=== PATIENT | female | born 1980 | race Caucasian/White ===

== ENCOUNTER 2021-12-03 14:13 | Emergency (ER) | payer OTHER, SELFPAY ==
[2021-12-03 14:14] VITALS: BP 116/74; PULSE 85; RESP 18; TEMP 36.6; O2SAT 99; BMI 28.3
[2021-12-03 17:18] LABS: Absolute Lymphocyte Count 1.75 X10^3/uL (0.83-4.51); Absolute Neutrophil Count 4.5 X10^3/uL (2.0-7.7); Basophil# 0.03 X10^3/uL; Basophil% 0.4 % (0-1); Eosinophils% 1.5 % (0-5); Hematocrit 40.9 % (37-47); Hemoglobin 14.7 g/dL (12.0-15.0); Lymphocyte # 1.75 X10^3/ul (0.83-4.51); Lymphocyte % 25.9 % (19-41); Mean Corp Hgb Conc 35.9 g/dL (32-36); Mean Corpuscular Hgb 32.4 pg (27.0-32.0); Mean Corpuscular Volume 90.1 fL (81-99); Mean Platelet Vol. 11.2 fl (6.2-12.0); Monocyte# 0.41 X10^3/uL; Monocyte% 6.1 % (0-10); NRBC Flagged by Analyzer 0 % (0-5); Neutrophil # 4.46 X10^3/uL (2.7-7.7); Platelet Count 189 K/mm3 (150-450); RBC Distribution Width CV 12.4 % (11.6-14.6); RBC Distribution Width SD 40.7 fl (35.1-43.9); Red Blood Count 4.54 M/mm3 (4.2-5.4); White Blood Count 6.8 K/mm3 (4.4-11.0)
[2021-12-03 17:33] LABS: Anion Gap 3 (5-15); BUN 11 mg/dL (7-18); BUN/Creat Ratio 12.6 RATIO (10-20); Chloride 107 mmol/L (98-107); Creatinine, Serum 0.87 mg/dL (0.55-1.02); EST Glomerular Filtration Rate 75 mL/min (>60); Est Glom Filt Rate - Afr Amer 91 mL/min (>60); Estimated Creatinine Clearance 72.74 ml/min; Glucose 103 mg/dL (74-106); Potassium 3.6 mmol/L (3.5-5.1); Sodium Level 136 mmol/L (136-145)
--- NOTE | 2021-12-03 18:17 | US_ITS ---
STUDY: FIRST TRIMESTER OBSTETRICAL ULTRASOUND REASON FOR EXAM: Female, 41 years old Acute left adnexal pain -- Rule out ectopic , 6 weeks by dates, sixt LMP: October 21, 2021 TECHNIQUE: Transabdominal and Transvaginal TECHNICAL QUALITY: Adequate. PRIOR ULTRASOUND: None. FINDINGS: There is visualization of a single gestational sac in a normal intrauterine position. The mean sac diameter (MSD) measures 1.48 cm, indicating an estimated gestational age (EGA) of 6 weeks, 2 days. The gestational sac shape is within normal limits. There is a visualized yolk sac. The yolk sac measures 3.9 mm. The placenta is non-visualized. There is visualization of a live embryo. The crown-rump length (CRL) measures 4.5 mm, indicating an estimated gestational age (EGA) of 6 weeks, 2 days. There is demonstrated cardiac activity with a heart rate of 77 bpm. The estimated gestation age (EGA) by LMP is 6 weeks, 1 days. The estimated date of delivery (OFELIA) by LMP is July 28, 2022. The estimated gestation age (EGA) by US is 6 weeks, 2 days. The estimated date of delivery (OFELIA) by US is July 27, 2022. The uterus measures 10.1 x 6.3 x 5.5 cm. There is no demonstrated uterine fibroid. The cervix is closed. The right ovary measures 3.1 x 4.1 x 3.4 cm. 2 simple and corpus luteal cyst are present in the right ovary, measuring 2.2 x 1.3 cm and 2.5 x 2.0 cm respectively. There is no visualized right adnexal mass or complex lesion. The left ovary measures 1.9 x 1.4 x 2.0 cm. There is no left ovarian cyst. There is no visualized left adnexal mass or complex lesion. There is no fluid in the cul de sac. US/Transvaginal w/Preg US IMPRESSION: 1. IUP at 6 weeks and 2 days Electronically Signed: Edgar Skaggs MD at 19:55 EST ,
--- NOTE | 2021-12-03 18:18 | EDS_ITS ---
HPI History of Present Illness Chief Complaint: Abd Pain Detail of Chief Complaint: Acute left adnexal pain Informant: patient Onset/Context/Timing Onset: Days (2 hours prior to presentation) Context: Sudden Onset Timing: Continuous and Waxes and wanes Quality: Pain Location: Left adnexa Current Severity: Moderate Maximum Severity: Severe Worsened by: Possibly walking Relieved by: Nothing Associated Symptoms Associated Symptoms: Nothing Narrative Narrative: Patient is a G6, P5 female who is 6 weeks gestation by dates who presents with abrupt onset of left groin/adnexal pain. She contacted her OB who recommended she come to the emergency department. She denies fever, chills night sweats. She denies cardiac or respiratory symptoms. She does report nausea without vomiting diarrhea. She denies dysuria, hematuria or urgency. She does report frequency. She denies history ovarian cysts, ectopic or STI. She denies history of endometriosis. She has not had any care or ultrasound with this . She denies orthostatic symptoms. She denies pain referred to her left shoulder. She is not on any medication. She reports allergy to sulfa. She denies history of renal ureterolithiasis. 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 Rasta Fletcher MD) do you think of yourself as: straight/heterosexual Smoking Status: Never smoker alcohol intake: never substance use type: does not use ROS ROS ED Constitutional Constitutional ED: Denies chills, fever(s), subjective, sweats or weight loss Eyes Eyes: Denies blurry vision, change in vision or diplopia ENT ENT ED: Denies ear pain, rhinorrhea or sore throat Cardiovascular Cardiovascular: Denies chest pain, orthopnea, palpitations, paroxysmal nocturnal dyspnea or racing heartbeat Respiratory/Chest Respiratory/Chest: Denies cough, dyspnea, dyspnea on exertion, orthopnea, paroxysmal nocturnal dyspnea or sputum Gastrointestinal Gastrointestinal: Reports abdominal pain and nausea; Denies constipation, diarrhea or vomiting Genitourinary Genitourinary ED: Denies dysuria, hematuria or urinary frequency Musculoskeletal Musculoskeletal: Denies arthralgias, back pain, myalgias or neck pain Integumentary Denies abscess or rash Neurologic Neurologic: Denies headache(s), paresthesias or weakness Endocrine Endocrinology: Denies polydipsia or polyuria EXAM Physical Exam Const Vital Signs: 12/03/21 14:14 12/03/21 18:33 12/03/21 20:01 Temperature 97.8 F Temperature Source Temporal Pulse Rate 85 73 89 Respiratory Rate 18 15 16 Blood Pressure 116/74 125/84 H 112/69 Blood Pressure Mean 88 97 83 Pulse Ox 99 100 100 Oxygen Delivery Method Room Air Room Air Room Air Positive well nourished and well developed; Negative for obese, contractures or unkempt General Appearance ED: well developed; Negative for unkempt, contractures, cyanotic, diaphoretic or pallor Nutritional Appearance: Negative for obese HEENT Reports moist mucous membranes HEENT Narrative: Nares patent. Ears normal. Negative for trauma or tenderness Eyes PERRL and EOMs intact bilaterally Neck no lymphadenopathy, supple and no JVD Chest Wall inspection of chest normal and palpation of chest normal Resp normal respiratory effort and clear to auscultation bilaterally Cardio regular rate, regular rhythm, S1 normal heart sound, S2 normal heart sound and no murmurs GI normal to inspection, nondistended, normoactive bowel sounds and non-distended; Negative for non-tender Palpation: soft Extremity normal to inspection General Extremety ED: Negative for edema or tenderness General Extremity: Negative for edema Neuro oriented x3, CN's II-XII intact bilaterally and no sensory deficits noted Sensorium / Orientation: alert Motor Exam: strength 5/5 throughout Psych mental status grossly normal Appearance: Negative for unkempt Skin no rashes or lesions noted and no wounds General Skin Exam: Negative for jaundice or pallor MDM MDM MDM Narrative Medical decision making narrative: Abrupt onset of left adnexal mass with no evidence of inguinal or femoral hernia need to rule out ectopic , ovarian torsion, ruptured ovarian cyst. Appropriate blood work was ordered per nurse protocol. This included a serum quantitative hCG. A stat transvaginal ultrasound was ordered. Patient was made NPO. Lab Data Attestation: I reviewed the patient's lab results. Labs: Laboratory Results - last 24 hr 12/03/21 12/03/21 12/03/21 17:00 17:00 17:00 WBC 6.8 RBC 4.54 Hgb 14.7 Hct 40.9 MCV 90.1 MCH 32.4 H MCHC 35.9 RDW Std Deviation 40.7 RDW Coeff of Babs 12.4 Plt Count 189 MPV 11.2 Immature Gran % (Auto) 0.100 Neut % (Auto) 66.0 Lymph % (Auto) 25.9 [place] % (Auto) 6.1 Eos % (Auto) 1.5 Baso % (Auto) 0.4 Absolute Neuts (auto) 4.5 Absolute Lymphs (auto) 1.75 Nucleated RBC % 0 Sodium 136 Potassium 3.6 Chloride 107 Carbon Dioxide 26.0 Anion Gap 3 L BUN 11 Creatinine 0.87 Estim Creat Clear Calc 72.74 Est GFR (MDRD) Af Amer 91 Est GFR (MDRD) Non-Af 75 BUN/Creatinine Ratio 12.6 Glucose 103 Calcium 9.0 HCG, Quant 13010 H Serum , Qual Cancelled Urine Color Urine Clarity Urine pH Ur Specific [place] Urine Protein Urine Glucose (UA) Urine Ketones Urine Occult Blood Urine Nitrite Urine Bilirubin Urine Urobilinogen Ur Leukocyte Esterase Urine RBC Urine WBC Ur Squamous Epith Cells Urine Bacteria Urine Mucus 12/03/21 19:20 WBC RBC Hgb Hct MCV MCH MCHC RDW Std Deviation RDW Coeff of Babs Plt Count MPV Immature Gran % (Auto) Neut % (Auto) Lymph % (Auto) [place] % (Auto) Eos % (Auto) Baso % (Auto) Absolute Neuts (auto) Absolute Lymphs (auto) Nucleated RBC % Sodium Potassium Chloride Carbon Dioxide Anion Gap BUN Creatinine Estim Creat Clear Calc Est GFR (MDRD) Af Amer Est GFR (MDRD) Non-Af BUN/Creatinine Ratio Glucose Calcium HCG, Quant Serum , Qual Urine Color Straw Urine Clarity Clear Urine pH 6.0 Ur Specific [place] 1.010 Urine Protein Negative Urine Glucose (UA) Normal Urine Ketones Negative Urine Occult Blood Negative Urine Nitrite Negative Urine Bilirubin Negative Urine Urobilinogen Normal Ur Leukocyte Esterase Negative Urine RBC 0 SEEN Urine WBC 0 SEEN Ur Squamous Epith Cells 0 SEEN Urine Bacteria 0 SEEN Urine Mucus 0 SEEN Radiography Diagnostic Testing: Clinical Impression(s) from Imaging Studies Obstetrics Ultrasound 12/03/21 18:17 IMPRESSION: 1. IUP at 6 weeks and 2 days Electronically Signed: Edgar Skaggs MD at 19:55 EST , Discharge Plan Triage Chief Complaint: Abd Pain ED Provider: Rasta Fletcher Dx/Rx/DC Orders Clinical Impression: Left groin pain, Intrauterine Instructions: First Trimester, ED Abdominal Pain, Early Prescriptions: No Action NK RF: 0 Primary Care Provider: Lorraine Reyna Referrals: Lorraine Reyna MD [Primary Care Provider] - Nirmala Santiago MD [STAFF PHYSICIAN] - 3-5 Days if not improving Disposition Disposition: Home, Self Care
[2021-12-03 18:21] LABS: hCG Titer Quant., Serum 28023 mIU/mL (1-3)
[2021-12-03 18:33] VITALS: BP 125/84; PULSE 73; RESP 15; O2SAT 100
[2021-12-03 19:28] LABS: Bacteria 0 SEEN /hpf (None Seen); Mucous, Urine 0 SEEN /hpf (<or=2+); Red Blood Cells-Urine 0 SEEN /hpf (0-5); Squamous Epithelial Cells - UA 0 SEEN /hpf (5-10); White Blood Cells 0 SEEN /hpf (0-5)
[2021-12-03 19:29] LABS: Color, Urine Straw (Yellow); Glucose, Dipstick Normal (Normal); Ketone-Dipstick Negative (Negative); Leukocyte Esterase-Dipstick Negative /ul (Negative); Nitrite-Dipstick Negative (Negative); Occult Blood-Urine Negative /ul (Negative); Protein-Dipstick Negative (Negative); Urine Bilirubin Dipstick Negative (Negative); Urine Clarity Clear (Clear); Urine Urobilinogen Normal (Normal)
[2021-12-03 20:01] VITALS: BP 112/69; PULSE 89; RESP 16; O2SAT 100
[2021-12-03 20:46] VITALS: BP 114/78; PULSE 78; RESP 14; O2SAT 99
== END 2021-12-03 20:47 | disposition home or self-care (01) ==
PROVIDERS: Emergency Provider Emergency Medicine; PCP Internal Medicine; Visit Provider Emergency Medicine
DX: O26.891 Other specified pregnancy related conditions, first trimester (principal); O09.521 Supervision of elderly multigravida, first trimester; Z3A.01 Less than 8 weeks gestation of pregnancy; R10.2 Pelvic and perineal pain
CPT/HCPCS: 76817; 80048; 81001; 84702; 85025; 99284

== ENCOUNTER 2021-12-18 13:24 | Outpatient (CLI) | payer OTHER, SELFPAY ==
[2021-12-18 12:03] LABS: Amphetamine Urine VISTA NEGATIVE (<1000 ng/mL); Barbiturate Urine VISTA NEGATIVE (< 200 ng/mL); Benzodiazepine Urine VISTA NEGATIVE (< 200 ng/mL); Cocaine Urine VISTA NEGATIVE (< 300 ng/mL); Ecstacy Urine VISTA NEGATIVE (< 500 ng/mL); Methadone Urine VISTA NEGATIVE (< 300 ng/mL); PCP Urine VISTA NEGATIVE (< 25 ng/mL); THC Urine VISTA NEGATIVE (< 50 ng/mL); Vista UDS pH Range 6
[2021-12-19 22:07] LABS: Chlamydia By Nucleic Acid AMP Negative (Negative)
[2021-12-20 19:12] LABS: Gonococcus By Nucleic Acid AMP Negative (Negative)
[2021-12-21 15:17] LABS: HPV APTIMA, High Risk Negative (Negative)
== END 2021-12-18 23:59 | disposition home or self-care (01) ==
LOC: LABSPEC 13:29
PROVIDERS: PCP Internal Medicine; Referring Provider Obstetrics & Gynecology; Visit Provider Obstetrics & Gynecology
DX: O09.90 Supervision of high risk pregnancy, unspecified, unspecified trimester (principal); Z12.4 Encounter for screening for malignant neoplasm of cervix
CPT/HCPCS: 80307; 87086; 87491; 87591; 87624; 88175; G0145

== ENCOUNTER 2021-12-31 16:00 | Outpatient (CLI) | payer OTHER, SELFPAY ==
[2021-12-31 16:25] LABS: Absolute Lymphocyte Count 1.57 X10^3/uL (0.83-4.51); Absolute Neutrophil Count 5.4 X10^3/uL (2.0-7.7); Basophil# 0.02 X10^3/uL; Basophil% 0.3 % (0-1); Eosinophil# 0.08 X10^3/uL; Eosinophils% 1.1 % (0-5); Hematocrit 37.2 % (37-47); Hemoglobin 13.1 g/dL (12.0-15.0); Lymphocyte # 1.57 X10^3/ul (0.83-4.51); Lymphocyte % 20.7 % (19-41); Mean Corp Hgb Conc 35.2 g/dL (32-36); Mean Platelet Vol. 11.5 fl (6.2-12.0); Monocyte# 0.46 X10^3/uL; Monocyte% 6.1 % (0-10); NRBC Flagged by Analyzer 0 % (0-5); Neutrophil # 5.43 X10^3/uL (2.7-7.7); Neutrophil % 71.5 % (47-70); Platelet Count 169 K/mm3 (150-450); RBC Distribution Width CV 12.7 % (11.6-14.6); RBC Distribution Width SD 41.4 fl (35.1-43.9); Red Blood Count 4.09 M/mm3 (4.2-5.4); White Blood Count 7.6 K/mm3 (4.4-11.0)
[2021-12-31 17:09] LABS: NATERA MAILED SPECIMEN
[2022-01-01 09:04] LABS: HIV - WCH Non-Reactive (Nonreactive); Hepatitis B Surface Antigen Non-Reactive (Nonreactive); Hepatitis C Antibody Non-Reactive (Nonreactive); Rubella IgG Reactive (Nonreactive); Syphilis Antibodies Non-reactive
== END 2021-12-31 23:59 | disposition home or self-care (01) ==
LOC: LAB 16:01
PROVIDERS: PCP Internal Medicine; Referring Provider Obstetrics & Gynecology; Visit Provider Obstetrics & Gynecology
DX: O09.90 Supervision of high risk pregnancy, unspecified, unspecified trimester (principal)
CPT/HCPCS: 36415; 85025; 86703; 86762; 86780; 86803; 86850; 86900; 86901; 87340

== ENCOUNTER → 2022-05-15 | Outpatient (CLI) | payer OTHER, SELFPAY ==
[2022-05-15 08:31] LABS: Absolute Lymphocyte Count 1.29 X10^3/uL (0.83-4.51); Absolute Neutrophil Count 7.2 X10^3/uL (2.0-7.7); Basophil# 0.01 X10^3/uL; Basophil% 0.1 % (0-1); Eosinophil# 0.11 X10^3/uL; Eosinophils% 1.2 % (0-5); Hematocrit 33.8 % (37-47); Hemoglobin 11.5 g/dL (12.0-15.0); Lymphocyte # 1.29 X10^3/ul (0.83-4.51); Lymphocyte % 14.2 % (19-41); Mean Corpuscular Hgb 31.1 pg (27.0-32.0); Mean Corpuscular Volume 91.4 fL (81-99); Mean Platelet Vol. 11.4 fl (6.2-12.0); Monocyte# 0.49 X10^3/uL; Monocyte% 5.4 % (0-10); NRBC Flagged by Analyzer 0 % (0-5); Neutrophil # 7.15 X10^3/uL (2.7-7.7); Neutrophil % 78.9 % (47-70); Platelet Count 151 K/mm3 (150-450); RBC Distribution Width CV 12.6 % (11.6-14.6); RBC Distribution Width SD 41.4 fl (35.1-43.9); White Blood Count 9.1 K/mm3 (4.4-11.0)
[2022-05-15 08:58] LABS: Glucose Challenge Gest 1H 50g 222 mg/dL (70-140)
== END | disposition home or self-care (01) ==
LOC: PAVLAB 08:09
PROVIDERS: PCP Internal Medicine; Referring Provider Obstetrics & Gynecology; Visit Provider Obstetrics & Gynecology
DX: O09.90 Supervision of high risk pregnancy, unspecified, unspecified trimester (principal)
CPT/HCPCS: 36415; 82950; 85025; 86900; 86901

== ENCOUNTER 2022-05-27 13:55 | Outpatient (RCR) | payer OTHER, SELFPAY | END 2022-05-27 23:59 | disposition home or self-care (01) | LOC: DC 13:55 | PROVIDERS: PCP Internal Medicine; Referring Provider Nurse Practitioner Women's Health; Visit Provider Nurse Practitioner Women's Health | DX: O24.419 Gestational diabetes mellitus in pregnancy, unspecified control (principal); Z3A.00 Weeks of gestation of pregnancy not specified | CPT/HCPCS: 97802 ==

== ENCOUNTER → 2022-06-10 | Outpatient (CLI) | payer OTHER, SELFPAY ==
--- NOTE | 2022-06-10 09:24 | VDLE_ITS ---
Reason For Study: Pain RIGHT LEFT GSV is normal. GSV is normal. CFV is compressible, spontaneous, phasic, CFV is compressible, spontaneous, phasic, competent and demonstrates normal competent, and demonstrates normal augmentation. augmentation. FV is compressible, spontaneous, phasic, FV is compressible, spontaneous, phasic, competent and demonstrates normal competent and demonstrates normal augmentation. augmentation. POP V is compressible, spontaneous, phasic, POP V is compressible, spontaneous, phasic, competent and demonstrates normal competent and demonstrates normal augmentation. augmentation. T/P Trunk is compressible. T/P Trunk is compressible. PTV is compressible. PTV is compressible. RT PerV is compressible. LT PerV is compressible. Procedure This is a venous duplex using B-mode, color flow and spectral Doppler. Exam performed in department. A preliminary report was called and/or faxed to [facility]. VL/Venous Duplex US - Tanner Extrem Interpretation Summary No evidence for acute deep venous thrombosis bilateral lower extremities with p atent and compressible bilateral great saphenous veins. Ordering Physician: Magaly Vazquez Referring Physician: Lorraine Reyna Performed By: Madelyn nSell RVT
== END | disposition home or self-care (01) ==
LOC: CVS 09:23
PROVIDERS: PCP Internal Medicine; Referring Provider Nurse Practitioner Women's Health; Visit Provider Nurse Practitioner Women's Health
DX: M79.661 Pain in right lower leg (principal); M79.662 Pain in left lower leg
CPT/HCPCS: 93970

== ENCOUNTER → 2022-07-01 | Outpatient (CLI) | payer OTHER, SELFPAY ==
--- NOTE | 2022-07-01 17:05 | US_ITS ---
EXAM: US , LIMITED CLINICAL INDICATION: growth @ 36 weeks TECHNIQUE: Real-time limited ultrasound of the maternal uterus with image documentation. This report was created using [employer] travel report generation technology. COMPARISON: December 03, 2021. FINDINGS: Cephalic presentation. heart rate 132 and 131 bpm. No cord is seen between the head and the cervix. Cervix: 3.4 cm in length. Placenta: Grade 0, anterior. No hemorrhage, previa or abruption. Amniotic fluid: Subjectively unremarkable. Four-quadrant GERRI 16.1 cm, largest pocket 6.8 cm. MEASUREMENTS: Biparietal diameter corresponds to 35 weeks 4 days. Head circumference corresponds to 39 weeks 1 day, 38 weeks 5 days and 37 weeks 1 day, cephalic index 74.8% and 73.96%. The abdominal circumference corresponds to 38 weeks 2 days gestation and 38 weeks 4 days gestation. Femur length corresponds to 36 weeks 0 days gestation. Overall estimated sonographic age 37 weeks 1 day, this correlates well to 36 weeks 2 days clinical age. Estimated weight 3202 g or 7 lbs. 1 oz., 80.46 percentile. US/OB Limited With Biometrics IMPRESSION: Live intrauterine . Estimated gestation age 37 weeks 1 day sonographically. Cephalic presentation. No obvious acute complications of identified. 80th percentile weight. Electronically Signed: Lyla Carbajal MD at 1:02 EDT ,
== END | disposition home or self-care (01) ==
LOC: US 17:03
PROVIDERS: PCP Internal Medicine; Referring Provider Nurse Practitioner Women's Health; Visit Provider Nurse Practitioner Women's Health
DX: O09.523 Supervision of elderly multigravida, third trimester (principal); Z3A.37 37 weeks gestation of pregnancy
CPT/HCPCS: 76816

== ENCOUNTER → 2022-07-05 | Outpatient (CLI) | payer OTHER, SELFPAY | END | disposition home or self-care (01) | PROVIDERS: PCP Internal Medicine; Visit Provider Obstetrics & Gynecology | DX: O09.90 Supervision of high risk pregnancy, unspecified, unspecified trimester (principal) | CPT/HCPCS: 87077; 87081; 87186 ==

== ENCOUNTER 2022-07-21 19:20 | Inpatient (IN) | payer OTHER, SELFPAY ==
[2022-07-21 19:42] VITALS: O2SAT 95
[2022-07-21 19:43] VITALS: BP 134/85; PULSE 113; TEMP 37.3
[2022-07-21] MEDS: 0.9% Saline Lock 10 ML Syringe IV (19:45)
[2022-07-21 19:57] VITALS: BMI 35.3
[2022-07-21 20:06] LABS: Absolute Lymphocyte Count 1.46 X10^3/uL (0.83-4.51); Basophil# 0.02 X10^3/uL; Basophil% 0.2 % (0-1); Eosinophil# 0.06 X10^3/uL; Eosinophils% 0.5 % (0-5); Hematocrit 33.8 % (37-47); Hemoglobin 10.7 g/dL (12.0-15.0); Lymphocyte # 1.46 X10^3/ul (0.83-4.51); Lymphocyte % 13.2 % (19-41); Mean Corp Hgb Conc 31.7 g/dL (32-36); Mean Corpuscular Hgb 26.6 pg (27.0-32.0); Mean Corpuscular Volume 84.1 fL (81-99); Mean Platelet Vol. 13.3 fl (6.2-12.0); Monocyte# 0.47 X10^3/uL; Monocyte% 4.2 % (0-10); NRBC Flagged by Analyzer 0.2 % (0-5); Neutrophil % 81.4 % (47-70); Platelet Count 153 K/mm3 (150-450); RBC Distribution Width CV 15.3 % (11.6-14.6); Red Blood Count 4.02 M/mm3 (4.2-5.4); White Blood Count 11.1 K/mm3 (4.4-11.0)
[2022-07-21 20:21] LABS: Bedside Glucose 96 mg/dL (74-106)
[2022-07-21] MEDS: miSOPROStol 25 MCG TABLET VAGINAL (21:25)
[2022-07-21 22:00] LABS: Bedside Glucose 74 mg/dL (74-106)
[2022-07-21 22:56] LABS: ALB/GLOB Ratio 0.6 RATIO (0.9-2.4); AST(SGOT) 21 U/L (15-37); Alanine Aminotransfer ALT/SGPT 24 U/L (13-56); Albumin, Serum 2.6 g/dL (3.2-5.0); Alkaline Phosphatase 184 U/L (45-117); Anion Gap 11 (5-15); BUN 9 mg/dL (7-18); BUN/Creat Ratio 11.3 RATIO (10-20); Chloride 106 mmol/L (98-107); EST Glomerular Filtration Rate 84 mL/min (>60); Est Glom Filt Rate - Afr Amer 101 mL/min (>60); Globulin 4.4 g/dL (2.2-4.2); Glucose 89 mg/dL (74-106); Potassium 3.7 mmol/L (3.5-5.1); Sodium Level 137 mmol/L (136-145)
[2022-07-21 23:30] VITALS: BP 141/72; PULSE 142; O2SAT 97
[2022-07-21 23:34] VITALS: TEMP 36.8
[2022-07-21 23:35] VITALS: PULSE 128; O2SAT 97
[2022-07-21 23:40] VITALS: PULSE 120; O2SAT 98
[2022-07-22] VITALS (77 sets, daily range): BP systolic 96–143; BP diastolic 52–87; PULSE 59–117; TEMP 35.8–37.3; O2SAT 95–100
[2022-07-22 00:05] LABS: Bedside Glucose 81 mg/dL (74-106)
[2022-07-22 00:53] LABS: ROM Internal Control Test YES-OK TO RESULT pt. (Internal QC); ROM Patient Test POSITIVE (Negative)
[2022-07-22] MEDS: Lactated Ringers 1,000 ML 50 ML IV (01:30)
[2022-07-22] MEDS: Penicillin G 3,000,000 Units 50 ML 100 UNITS IV ×5 (01:43→17:50)
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
[2022-07-22 03:46] LABS: Bedside Glucose 81 mg/dL (74-106)
[2022-07-22 07:21] LABS: Bedside Glucose 92 mg/dL (74-106)
[2022-07-22] MEDS: LACTATED RINGERS 500 ML 999 ML IV ×2 (09:25→12:50)
[2022-07-22] MEDS: 0.9% Saline Lock 10 ML Syringe IV (10:02)
[2022-07-22] MEDS: fentaNYL-bupivacaine (epidural) 100 ML BAG EPIDURAL ×2 (10:35→14:28)
[2022-07-22] MEDS: Ondansetron 4 MG/2 ML Vial IV (10:39)
[2022-07-22 11:25] LABS: Bedside Glucose 95 mg/dL (74-106)
[2022-07-22 12:40] LABS: Bedside Glucose 78 mg/dL (74-106)
[2022-07-22] MEDS: Oxytocin 30 units/NS 500 ml 30 UNITS/500 ML IV.SOLN IV (13:30)
[2022-07-22 13:50] LABS: Bedside Glucose 80 mg/dL (74-106)
[2022-07-22] MEDS: Lactated Ringers 1,000 ML 200 ML IV (14:05)
[2022-07-22 14:46] LABS: Bedside Glucose 75 mg/dL (74-106)
[2022-07-22 15:36] LABS: Bedside Glucose 78 mg/dL (74-106)
[2022-07-22 16:30] LABS: Bedside Glucose 71 mg/dL (74-106)
[2022-07-22 17:45] LABS: Bedside Glucose 83 mg/dL (74-106)
[2022-07-22 18:35] LABS: Bedside Glucose 72 mg/dL (74-106)
--- NOTE | 2022-07-22 19:33 | OP.PCM_ITS ---
Assessment & Plan (1) Encounter for induction of labor: COMMENT: plan cytotec then Pitocin, epi if desired (2) Anxiety and depression: COMMENT: 05/15 start zoloft Weaned off wellbutrin, vistaril and Vibrid. Enc counseling. (3) Supervision of high risk , antepartum: COMMENT: PRR OFELIA:07/27/22, boy PC:Sharmaine Sr Cadence, Paiton, Wilson Spouse:Jeff(his first) (4) : QUALIFIERS: Weeks of gestation: 38 weeks Qualified Code(s): Z3A.38 - 38 weeks gestation of COMMENT: anatomy nl, declined ntd and carrier screen, NIPT low risk (5) AMA (advanced maternal age) multigravida 35+: COMMENT: NIPT low risk, plan 36 week growth US, 07/02 nl growth (6) Hx LEEP (loop electrosurgical excision procedure), cervix, : COMMENT: needs CL at 18 weeks. (7) Rh negative status during : COMMENT: give rhogam at 28 weeks and PRN rhogam 05/15/22 (8) History of tetanus, diphtheria, and acellular pertussis booster vaccination (Tdap): COMMENT: 05/15/22 (9) Gestational diabetes mellitus (GDM) affecting , antepartum: COMMENT: plan BS q 4 hr latent and then q1 hr active, insulin drip PRN referral and [facility] thresher broomcorn now on insulin- 5 shots daily (10) Positive GBS test: COMMENT: PCN in labor (11) Vaginal delivery: COMMENT: SM IOL [id number] 39 boy lazarus Maternal Data Information OFELIA Calculator Estimated Delivery Date Method Current WG Current Estimate 07/27/22 Ultrasound #1 39w 2d Other Estimates 08/02/22 LMP (Certain) 38w 3d 07/27/22 Ultrasound #2 39w 2d Vaginal Delivery Operative Information Date of Procedure: 07/22/22 Pre-Operative Diagnosis: IOL gdma2 Post-Operative Diagnosis: same Surgery / Procedure Performed: Spontaneous Vaginal Delivery Type of Anesthesia: Epidural Special Medications: none Estimated Blood Loss: 100 Fluids Replaced: crystalloid Findings Description of Procedure: Patient began pushing and delivered the head in the DUGLAS presentation. The head was delivered atraumatically . The anterior and posterior shoulders delivered without complication followed by the rest of the and the was placed on the maternal abdomen. Delayed cord clamping was employed for approximately 60 seconds. Cord was clamped and cut and gentle traction was applied to the cord and the placenta delivered spontaneously immediately following it was noted to be intact with three-vessel cord. The perineum and vagina were inspected and noted to have no laceration. EBL was 100 cc. Patient and tolerated delivery well. Presentation: DUGLAS Amniotic Membrane Rupture Type: Spontaneous Amniotic Fluid Description: Clear Placental Delivery Description: Spontaneous Placenta Disposition: [facility] Cord Vessel Description: 3 Vessels Cord Entanglement: None Delayed Cord Clamping: Yes Post Vaginal Delivery Medications Given After Delivery: IV Pitocin Episiotomy Description: None Laceration: None Complication Complications: None Procedures Urinary/Genital [id number]: [id number] Vaginal Delivery [facility]
--- NOTE | 2022-07-22 19:38 | DCINST_ITS ---
Discharge Instructions Diet Discharge Diet: No restrictions Activity Discharge Activity: Return to Normal Activity, May Drive, May Shower and May Take a Tub Bath (in 4 weeks) May resume sexual activity in: 6-8 weeks (after seen by OB provider) Weight Bearing Status: Full weight bearing Lifting Restrictions: none Dressing / Incision Call your doctor if you observe: Fever of 101 or Higher, Inability to urinate, Using more than 1 pad per hour (for more than 2 hours in a row or more), Shortness of breath, Dizziness, Chest pain and - (headache not controlled with tylenol, change in vision) Follow Up Care When: in 6 weeks for visit, call the office to make the appointment. If you had elevated blood pressures call the office to be seen within 1 week. Test Results: Test results from this visit will be discussed in further detail at your follow- up appointment, if applicable. Discharge Plan Admission Admit Date/Time: 07/21/22 19:20 Attending Provider: Nirmala Santiago Primary Care Provider: Lorraine Reyna Discharge Orders/Prescriptions Prescriptions: No Action prenat.vits,anant,[id number]-qycq-cosuu Tablet 1 tab PO DAILY insulin NPH isoph U-100 human 100 unit/mL (3 mL) insulin pen 2 unit subcut QAM Rx Instructions: 20 units in am, 24 units in pm insulin regular human 100 unit/mL solution 17 unit subcut .at dinner Rx Instructions: 9 units at breakfast, 12 units at lunch and 17 units at super (DME) blood-glucose meter Kit See Rx Instructions .Route Qty: 1 0RF Rx Instructions: As directed (DME) blood sugar diagnostic Strip See Rx Instructions .Route Qty: 100 2RF Rx Instructions: qid fasting and 2 hr pp Referrals / Follow Up: Lorraine Reyna MD [Primary Care Provider] - Disposition Disposition (needs filled in before D/C Order can be placed): Home, Self Care
[2022-07-22] MEDS: Oxytocin 30 units/NS 500 ml 30 UNITS/500 ML IV.SOLN 334 UNITS IV (19:42)
[2022-07-22 19:56] LABS: Bedside Glucose 92 mg/dL (74-106)
[2022-07-22] MEDS: Naproxen 500 MG Tablet PO (19:56)
[2022-07-22] MEDS: Methylergonovine 0.2 MG/ML Ampul IM (20:02)
[2022-07-22] MEDS: Acetaminophen 500 MG Tablet 1000 MG PO (23:54)
[2022-07-23] VITALS (7 sets, daily range): BP systolic 116–137; BP diastolic 59–78; PULSE 80–88; RESP 14–16; TEMP 36.2–36.6; O2SAT 97
[2022-07-23] MEDS: Naproxen 500 MG Tablet PO ×2 (04:20→14:33)
[2022-07-23 07:10] LABS: Bedside Glucose 89 mg/dL (74-106)
--- NOTE | 2022-07-23 07:58 | PN.OBGYN_ITS ---
Subjective Subjective Patient doing well without complaints. Tolerating PO. Ambulating and voiding without difficulty. Feeding well. Denies chest pain, shortness of breath, calf pain/swelling, fevers, chills, lightheadedness. Objective Data Objective Data Vital Signs: Vital Signs Temp Pulse Resp BP Pulse Ox O2 Del Method 97.1 F L 88 16 116/69 97 Room Air 07/23/22 04:23 07/23/22 04:23 07/23/22 04:23 07/23/22 04:23 07/22/22 20:43 07/23/22 04:23 Oxygen Delivery Method Room Air Weight: 205 lb 11.06 oz Body Mass Index (BMI) 35.3 Intake & Output: Intake and Output for Last 24 Hours 07/21/22 07/22/22 07/23/22 23:59 23:59 23:59 Intake Total 105 / 105 4167.20 / 4167.20 Output Total 1100 / 1100 Balance 105 / 105 3067.20 / 3067.20 Lab / Micro Data Result Diagrams: 07/21/22 19:45 07/21/22 19:45 Labs: Laboratory Results - last 24 hr 07/22/22 11:01: POC Glucose 95 07/22/22 12:07: POC Glucose 78 07/22/22 13:12: POC Glucose 80 07/22/22 14:09: POC Glucose 75 07/22/22 15:05: POC Glucose 78 07/22/22 16:12: POC Glucose 71 L 07/22/22 17:09: POC Glucose 83 07/22/22 18:07: POC Glucose 72 L 07/22/22 19:34: POC Glucose 92 07/22/22 22:52: Screen NEGATIVE, Baby's Blood Type A POSITIVE, Baby's JAYA NEGATIVE 07/23/22 06:44: POC Glucose 89 Micro: Microbiology 07/21/22 19:45 Nasal Secretion SARS-CoV-2 Antigen (Rapid) - Final Physical Exam Const alert and oriented x3 HEENT normocephalic Eyes PERRL Neck full ROM Resp normal respiratory effort GI soft to palpation GI Narrative: FF below U Assessment & Plan (1) Vaginal delivery: COMMENT: SM IOL [id number] 39 boy lazarus (2) Anxiety and depression: COMMENT: 05/15 start zoloft Weaned off wellbutrin, vistaril and Vibrid. Enc counseling. (3) Rh negative status during : COMMENT: give rhogam at 28 weeks and PRN rhogam 05/15/22 (4) Gestational diabetes mellitus (GDM) affecting , antepartum: COMMENT: plan BS q 4 hr latent and then q1 hr active, insulin drip PRN referral and [facility] glass blower now on insulin- 5 shots daily PLAN: Plan s/p PPD # 1 1. routine post delivery care 2. breast feeding- support given 3. rh negative 4. rubella immune 5. glucose stable 6. anxiety stable
[2022-07-23] MEDS: Acetaminophen 500 MG Tablet 1000 MG PO ×2 (09:28→21:17)
[2022-07-23] MEDS: Senna/Docusate Sodium 1 Tablet PO (09:29)
[2022-07-24 02:25] VITALS: BP 112/61; PULSE 80; RESP 16; TEMP 36.1; O2SAT 97
[2022-07-24] MEDS: Acetaminophen 500 MG Tablet 1000 MG PO (04:33)
--- NOTE | 2022-07-24 08:14 | PCM.PN.OB ---
Subjective Subjective Patient doing well without complaints. Tolerating PO. Ambulating and voiding without difficulty. Feeding well. Denies chest pain, shortness of breath, calf pain/swelling, fevers, chills, lightheadedness. Objective Data Objective Data Vital Signs: Vital Signs Temp Pulse Resp BP Pulse Ox O2 Del Method 97 F L 80 16 112/61 97 Room Air 07/24/22 02:25 07/24/22 02:25 07/24/22 02:25 07/24/22 02:25 07/24/22 02:25 07/24/22 02:25 Oxygen Delivery Method Room Air Weight: 205 lb 11.06 oz Body Mass Index (BMI) 35.3 Intake & Output: Intake and Output for Last 24 Hours 07/22/22 07/23/22 07/24/22 23:59 23:59 23:59 Intake Total 4167.20 / 4167.20 Output Total 1100 / 1100 Balance 3067.20 / 3067.20 Lab / Micro Data Result Diagrams: 07/21/22 19:45 07/21/22 19:45 Micro: Microbiology 07/21/22 19:45 Nasal Secretion SARS-CoV-2 Antigen (Rapid) - Final Physical Exam Const alert and oriented x3 HEENT normocephalic Eyes PERRL Neck full ROM Resp normal respiratory effort GI soft to palpation GI Narrative: FF below U Assessment & Plan (1) Vaginal delivery: COMMENT: SM IOL GDMA2 39 boy lazarus (2) Anxiety and depression: COMMENT: 05/15 start zoloft Weaned off wellbutrin, vistaril and Vibrid. Enc counseling. 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 routine post delivery care 2. breast feeding- support given 3. rh positive 4. rubella immune 5. glucose stable 6. anxiety stable 7. home today
[2022-07-24 09:10] VITALS: BP 110/64; PULSE 82; RESP 16; TEMP 36.8
[2022-07-24 09:46] VITALS: BP 110/64; PULSE 74; RESP 16; TEMP 36.8
[2022-07-24 09:51] VITALS: RESP 16
--- NOTE | 2022-07-24 09:51 | CASEMGMT ---
Social Work Labor and Delivery Unit Date/Time of Referral: 07/23/22, 7:28 Referred by: Dr. Nirmala Santiago Date/Time of Intervention: 07/24/22, 9:15am Reason for Referral: hx of anxiety/depression on medication prior to History Obtained from: MOB and FOB Household composition: This is SATISH's 6th child, first with FODemetris Aguilar. This is Jeff' first child. The five older children are 22, 20, 17,13, and 12. Four of the children live with them, the 20 year old is with them some of the time. FOB to the first five children is involved. MOB and FOB of this baby have been together for 7 years. Patient's parent/guardian status: SATISH Gillis and FODemetris Aguilar are guardians of this child. Medical History: MOB, gestational diabetes, anxiety, depression, hemorrhage. Baby: Baby Singh born on [birth year], Apgars 9 and 9 at one and five minutes, 3920g. Educational Status: MOB has Bachelors in Social Work. FOB is working on Bachelors in [employer] Status: No concerns. MOB: Works for [employer], is unsure if returning to work. FOB works as an auto radiator specialist. supplies: They have all needed supplies including clothing, diapers, wipes, car seat, crib, bassinet, bottles, formula. MOB does plan to breast feed. Childcare/Caregivers: SATISH's mother, the older children help also Transportation: They have access to transportation. Programs/Agencies Involved: None Children's Services/Legal Issues: None Behavioral Health Issues: Substance abuse: MOB and FOB report none. MOB had negative tox screen 12/18/21. Mental Health: FOB reports none. SW did aske FOB to step out briefly, and SW asked MOB more about mental health: SATISH reports anxiety and depression. She states it has been manageable. She was on Wellbutrin, Viibryd and Vistaril prior to . She states went off of these meds when learned was . These meds are prescribed by her PCP. She did at one point reach out to her OB and got a script for Zoloft, but decided not to take it while . MOB will reach out to her PCP if she feels she needs to go back on medication. SATISH has been in counseling, though is not now. She states would go back to counseling if needed. We also discussed . SATISH states she had some after the of her now 12 year old. She states her at that time left her when her daughter was four months old, and she was all of a sudden a single mom of 5. We talked about the circumstances around this leading to her having a difficult time. She states her at present is very supportive. SW did also ask MOB about safety, no safety concerns. FOB then did come back to the room for the rest of the assessment. Family/Social Stressors: They report no stressors at this time. Support Systems: MOB's mother, and FOB's mother both supportive Depression and Anxiety, Shaken Baby, Safe sleeping, Crisis hotline, Help Me Grow, [facility] Resources, List of Counseling Agencies: SW provided information to parents on all of these topics, and reviewed in particular with MOB and FOB warning signs of . SW encouraged MOB to get back into counseling and speak w/PCP about medication should she start having symptoms. MOB and FOB both state understanding. Assessment: When SW entered room, FOB holding baby, MOB asleep. MOB awoke easily, both MOB and FOB answered all questions appropriately. FOB appropriate in care of handling of baby while SW in the room. Plan: Baby home w/FOB and MOB at discharge. No further social service needs warranted. SW remains available should any additional needs arise. CYRIL Mclaughlin
--- NOTE | 2022-07-26 05:39 | DS.PCM_ITS ---
Providers Date of Admission: 07/21/22 Primary Care Physician: Dr. Lorraine Reyna MD Reason For Visit: VAGINAL DELIVERY Diagnosis Discharge Diagnosis (1) Vaginal delivery: Status: Inactive Code(s): O80 - Encounter for full-term uncomplicated delivery (2) Anxiety and depression: Status: Acute Code(s): F41.9 - Anxiety disorder, unspecified; F32.A - Depression, unspecified (3) Rh negative status during : Status: Acute Code(s): O26.899 - Other specified related conditions, unspecified trimester; Z67.91 - Unspecified blood type, Rh negative (4) Gestational diabetes mellitus (GDM) affecting , antepartum: Status: Inactive Code(s): O24.419 - Gestational diabetes mellitus in , unspecified control Medications at Discharge Home Medications prenat.vits,anant,[id number]-[id number] 1 tab PO DAILY 12/10/21 blood sugar diagnostic #100 ea 05/15/22 blood-glucose meter #1 ea 05/15/22 insulin NPH isoph U-100 human 100 unit/mL (3 mL) subcutaneous pen 2 unit subcut QAM diabetes 07/05/22 insulin regular human 100 unit/mL injection solution 17 unit subcut .at dinner diabetes 07/09/22 Hospital Course Summary of Care Provided Hospital Course: admitted for IOL sec diabetes underwentcytotec then pitocin delivered uncomplicated discharged home day 2 Weight / BMI Weight Weight: 205 lb 11.06 oz Body Mass Index (BMI) 35.3 ABG / Lab / Microbiology Data Result Diagrams: 07/21/22 19:45 07/21/22 19:45 Microbiology: Microbiology 07/21/22 19:45 Nasal Secretion SARS-CoV-2 Antigen (Rapid) - Final D/C Instructions Discharge Diet: No restrictions Discharge Activity: May Not Drive (for 2 weeks or while taking narcotic pain medications.), May Shower and May Take a Tub Bath (in 7 days) May shower in (days): 0 May resume sexual activity in: 6-8 weeks (after seen by OB provider) Weight Bearing Status: Full weight bearing Call your doctor if your incision/area has: Continuous Slow Oozing, Sudden Increased Bleeding, Increased Pain/ Swelling, Increased Redness and Foul Smelling Discharge Call your doctor if you observe: Fever of 101 or Higher, Inability to urinate, Using more than 1 pad per hour (for more than 2 hours in a row or more), Shor tness of breath, Dizziness, Chest pain and - (headache not controlled with tylenol, change in vision) Suture Line Care: Avoid Pulling/Pushing and Avoid Pinching/Bending Cleanse incision/area with: Soap & Water and Keep Dressing Clean & Dry Please Follow Up With: Nirmala Santiago MD When: in 6 weeks for visit, call the office to make the appointment. If you had elevated blood pressures call the office to be seen within 1 week. Meaningful Use Info Meaningful Use Diagnoses (Choose all that apply): None applicable Discharge Plan Admission Admit Date/Time: 07/21/22 19:20 Attending Provider: Nirmala Santiago Primary Care Provider: Lorraine Reyna Instructions Forms: Information Patient Instructions: After a Vaginal , Depression Discharge Orders/Prescriptions Prescriptions: No Action prenat.vits,anant,[id number]-jqno-tfhfr Tablet 1 tab PO DAILY insulin NPH isoph U-100 human 100 unit/mL (3 mL) insulin pen 2 unit subcut QAM Rx Instructions: 20 units in am, 24 units in pm insulin regular human 100 unit/mL solution 17 unit subcut .at dinner Rx Instructions: 9 units at breakfast, 12 units at lunch and 17 units at super (DME) blood-glucose meter Kit See Rx Instructions .Route Qty: 1 0RF Rx Instructions: As directed (DME) blood sugar diagnostic Strip See Rx Instructions .Route Qty: 100 2RF Rx Instructions: qid fasting and 2 hr pp Referrals / Follow Up: Lorraine Reyna MD [Primary Care Provider] - Disposition Disposition (needs filled in before D/C Order can be placed): Home, Self Care
== END 2022-07-24 11:30 | disposition home or self-care (01) | DRG 807 ==
PROVIDERS: Admitting Provider Obstetrics & Gynecology; PCP Internal Medicine; Visit Provider Obstetrics & Gynecology
DX: O24.424 Gestational diabetes mellitus in childbirth, insulin controlled (principal); Z37.0 Single live birth; O99.344 Other mental disorders complicating childbirth; F32.A Depression, unspecified; F41.9 Anxiety disorder, unspecified; O42.92 Full-term premature rupture of membranes, unspecified as to length of time between rupture and onset of labor; O99.824 Streptococcus B carrier state complicating childbirth; O26.893 Other specified pregnancy related conditions, third trimester; Z67.11 Type A blood, Rh negative; Z3A.39 39 weeks gestation of pregnancy; Z98.890 Other specified postprocedural states; Z79.899 Other long term (current) drug therapy; Z87.891 Personal history of nicotine dependence; Z87.59 Personal history of other complications of pregnancy, childbirth and the puerperium
CPT/HCPCS: 59025; 59050; 80053; 82962; 84112; 85025; 85461; 86850; 86900; 86901; 87426; 90384; 99218; J7120; A4216; G0378; J2405; J2790